=== PATIENT | male | born 1930 | race Asian ===

== ENCOUNTER 2018-02-12 05:46 | Day surgery (SDC) | payer MEDICARE, OTHER ==
[~2018-02-12] VITALS: Ht 162.6 cm; Wt 65.0 kg
[~2018-02-12 05:46] MED LIST: DICLOFENAC SODIUM 0.1% 2.5 ML OPHTHALMIC SOLUTION OD ONE; DICLOFENAC SODIUM 0.1% 2.5 ML OPHTHALMIC SOLUTION ONE; MOXIFLOXACIN HCL 0.5% 3 ML OPHTHALMIC SOLUTION OD ONE; MOXIFLOXACIN HCL 0.5% 3 ML OPHTHALMIC SOLUTION ONE; PHENYLEPHRINE HCL 2.5% 2 ML OPHTHALMIC SOLUTION ONE; RINGERS SOLUTION,LACTATED 500 ML IV ONE; SODIUM CHLORIDE 0.9% 500 ML IV ONE; TROPICAMIDE 1% 2 ML OPHTHALMIC SOLUTION ONE
[2018-02-12] MEDS ORDERED: ASPI81 PO (06:29)
[2018-02-12] MEDS ORDERED: NIFE10 PO (06:29)
[2018-02-12] MEDS ORDERED: PANT40TA25 PO (06:29)
[2018-02-12] MEDS ORDERED: ATOR10TA84 PO (06:29)
[2018-02-12] MEDS ORDERED: DOXA2TAB PO (06:29)
[2018-02-12] MEDS ORDERED: HYDR25TA84 PO (06:29)
[2018-02-12] MEDS ORDERED: LISI-661 PO (06:29)
[2018-02-12] MEDS: PHENYLEPHRINE HCL 2.5% 2 ML OPHTHALMIC SOLUTION OD SCH ×2 (06:29→06:35)
[2018-02-12] MEDS ORDERED: FINA5TAB41 PO (06:29)
[2018-02-12] MEDS ORDERED: RIVA15T PO (06:29)
[2018-02-12] MEDS ORDERED: PARO10TA89 PO (06:29)
[2018-02-12] MEDS ORDERED: LORA10TA7 PO (06:29)
[2018-02-12] MEDS: TROPICAMIDE 1% 2 ML OPHTHALMIC SOLUTION OD SCH ×2 (06:29→06:35)
[2018-02-12] MEDS ORDERED: LEVO112T4 PO (06:29)
[2018-02-12] MEDS ORDERED: NIFE60TA PO (06:29)
[2018-02-12] MEDS ORDERED: TAMS0.4C32 PO (06:29)
[2018-02-12 06:35] LABS: GLUCOMETER DEV NAME(LOC) SDS 5; GLUCOSE,POINT OF CARE 115 MG/DL (70-110)
[2018-02-12] MEDS ORDERED: MIDAZOLAM HCL 2 MG/2 ML VIAL IVP ONE (12:00)
[2018-02-12] MEDS ORDERED: FentaNYL CITRATE-PF 100 MCG/2 ML VIAL IVP ONE (12:00)
[2018-02-12] MEDS ORDERED: LIDOCAINE HCL 1% 20 ML VIAL ONE (17:02)
[2018-02-12] MEDS ORDERED: POVIDONE-IODINE 10% 15 ML SOLUTION UD ONE (17:02)
[2018-02-12] MEDS ORDERED: HYALURONATE SODIUM 12 MG/ML 0.8 ML SYRINGE IO ONE (17:02)
[2018-02-12] MEDS ORDERED: DEXAMETHASONE SOD PHOS 4 MG/ML VIAL ONE (17:02)
[2018-02-12] MEDS ORDERED: HYALURONATE SOD/CHONDROITIN SOD 0.5 ML VIAL IO ONE (17:02)
[2018-02-12] MEDS ORDERED: TETRACAINE HCL VISCOUS 0.5% 0.6 ML OPHTHALMIC SOLUTION ONE (17:02)
== END 2018-02-12 09:15 | disposition home or self-care (01) ==
LOC: SURGERY 05:46
PROVIDERS: ATTEND Specialist
DX: E11.36 Type 2 diabetes mellitus with diabetic cataract (principal); H25.011 Cortical age-related cataract, right eye; I10 Essential (primary) hypertension; Z87.891 Personal history of nicotine dependence; Z87.01 Personal history of pneumonia (recurrent); Z85.850 Personal history of malignant neoplasm of thyroid
CPT/HCPCS: 65785; 66982; 82962; 93005; C1780; J2250; J3010; J7120; J1100; J3490

== ENCOUNTER 2018-03-20 06:20 | Day surgery (SDC) | payer MEDICARE, OTHER ==
[~2018-03-20] VITALS: Ht 162.6 cm; Wt 64.1 kg
[~2018-03-20 06:20] MED LIST changes: +0.9% SODIUM CHLORIDE 10 ML SYRINGE IVP PRN; +ASPI81 PO; +ATOR10TA84 PO; -DICLOFENAC SODIUM 0.1% 2.5 ML OPHTHALMIC SOLUTION OD ONE; +DICLOFENAC SODIUM 0.1% 2.5 ML OPHTHALMIC SOLUTION OS ONE; +DOXA2TAB PO; +FINA5TAB41 PO; +HYDR25TA84 PO; +LEVO112T4 PO; +LISI-661 PO; +LORA10TA7 PO; -MOXIFLOXACIN HCL 0.5% 3 ML OPHTHALMIC SOLUTION OD ONE; +MOXIFLOXACIN HCL 0.5% 3 ML OPHTHALMIC SOLUTION OS ONE; +NIFE10 PO; +NIFE60TA PO; +PANT40TA25 PO; +PARO10TA89 PO; +RIVA15T PO; -SODIUM CHLORIDE 0.9% 500 ML IV ONE; +TAMS0.4C32 PO
[2018-03-20] MEDS ORDERED: MIDAZOLAM HCL 2 MG/2 ML VIAL IVP ONE (06:21)
[2018-03-20] MEDS ORDERED: FentaNYL CITRATE-PF 100 MCG/2 ML VIAL IVP ONE (06:21)
[2018-03-20] MEDS: TROPICAMIDE 1% 2 ML OPHTHALMIC SOLUTION OS SCH ×2 (06:50→06:55)
[2018-03-20] MEDS: PHENYLEPHRINE HCL 2.5% 2 ML OPHTHALMIC SOLUTION OS SCH ×2 (06:50→06:55)
== END 2018-03-20 09:05 | disposition home or self-care (01) ==
LOC: SURGERY 06:20
PROVIDERS: ATTEND Specialist
DX: E11.36 Type 2 diabetes mellitus with diabetic cataract (principal); H25.012 Cortical age-related cataract, left eye; I10 Essential (primary) hypertension; E78.00 Pure hypercholesterolemia, unspecified; I44.0 Atrioventricular block, first degree; E89.0 Postprocedural hypothyroidism; K21.9 Gastro-esophageal reflux disease without esophagitis; Z87.891 Personal history of nicotine dependence; Z98.41 Cataract extraction status, right eye; Z79.01 Long term (current) use of anticoagulants; Z87.01 Personal history of pneumonia (recurrent); Z85.850 Personal history of malignant neoplasm of thyroid; Z87.11 Personal history of peptic ulcer disease; Z79.82 Long term (current) use of aspirin; Z98.890 Other specified postprocedural states; Z79.899 Other long term (current) drug therapy
CPT/HCPCS: 66982; C1780; J2250; J3010; J7120